=== PATIENT | male | born 1950 | race Caucasian/White ===

== ENCOUNTER → 2021-07-05 | Emergency (ER) | payer MEDICARE, BC | END | disposition home or self-care (01) | LOC: ER 15:54 | DX: S80.11XA Contusion of right lower leg, initial encounter (principal); M79.661 Pain in right lower leg; E78.00 Pure hypercholesterolemia, unspecified; I10 Essential (primary) hypertension; Z98.890 Other specified postprocedural states; Z88.8 Allergy status to other drugs, medicaments and biological substances; X58.XXXA Exposure to other specified factors, initial encounter; Y93.89 Activity, other specified; Y92.89 Other specified places as the place of occurrence of the external cause; Y99.8 Other external cause status | CPT/HCPCS: 93971; 99284 ==

== ENCOUNTER 2024-06-30 06:40 | Day surgery (SDC) | payer MEDICARE, BC ==
[2024-06-26 12:09] LABS: BASOPHILS % (AUTO) 0.7 % (0-1); EOSINOPHILS # (AUTO) 0.3 X10'3 (0-0.9); EOSINOPHILS % (AUTO) 6.2 % (0-6); LYMPHOCYTES # (AUTO) 1.6 X10'3 (1.1-4.8); LYMPHOCYTES % (AUTO) 30.6 % (21-51); MEAN CORPUSCULAR HEMOGLOBIN 31.1 PG (27.0-31.0); MEAN CORPUSCULAR HGB CONC 34.3 g/dL (33.0-36.5); MEAN CORPUSCULAR VOLUME 90.7 FL (78-98); MEAN PLATELET VOLUME 7.7 FL (7.4-10.4); MONOCYTES # (AUTO) 0.5 X10'3 (0-0.9); MONOCYTES % (AUTO) 8.6 % (2-12); NEUTROPHILS # (AUTO) 2.8 X10'3 (1.8-7.7); NEUTROPHILS % (AUTO) 53.9 % (42-75); PRE OP HEMATOCRIT 42.8 % (42.0-52.0); PRE OP HEMOGLOBIN 14.7 g/dL (14.0-17.9); PRE OP PLATELET COUNT 215 X10'3 (140-440); PRE OP WHITE BLOOD COUNT 5.3 10'3 (4.8-10.8); RED BLOOD COUNT 4.72 X10'6 (4.70-6.10); RED CELL DISTRIBUTION WIDTH 14.1 % (11.5-14.5)
[2024-06-26 12:22] LABS: ALBUMIN 3.9 G/DL (3.4-5.0); ALBUMIN/GLOBULIN RATIO 1.2 (1.1-1.5); ALKALINE PHOSPHATASE 48 IU/L (46-116); BLOOD UREA NITROGEN 21 MG/DL (7-18); BUN/CREATININE RATIO 15.4 (10.0-20.0); CALCIUM 9.8 MG/DL (8.5-10.1); CHLORIDE 104 MMOL/L (99-107); CREATININE 1.36 MG/DL (0.60-1.10); PRE OP ALT 31 U/L (30-65); PRE OP ANION GAP 7 (8-16); PRE OP AST 55 U/L (10-37); PRE OP BILIRUB, TOTAL 0.8 MG/DL (0.0-1.0); PRE OP GLUCOSE 89 MG/DL (70-104); PRE OP POTASSIUM 3.8 MMOL/L (3.4-5.1); PRE OP SODIUM 139 MMOL/L (135-145); TOTAL CARBON DIOXIDE 28.1 MMOL/L (24-32); TOTAL PROTEIN 7.2 G/DL (6.4-8.2); eGFR 51 ML/MIN
[~2024-06-30] VITALS: Ht 193 cm; Wt 95.3 kg
[2024-06-30] VITALS (17 sets, daily range): BP systolic 136–167; BP diastolic 69–93; PULSE 46–59; RESP 12–18; TEMP 98.1; O2SAT 93–99
[2024-06-30] MEDS: famotidine 20mg tablet PO ONE (05:30)
[2024-06-30] MEDS: cefazolin 2gm/D5W 100mL 100 ML IV ONE (05:45)
[~2024-06-30 06:40] MED LIST: ALIR150P6 SUBCUT; FENO145T26 PO; HYDR25TA5 PO; LORA-512 PO; MAGN100T6 PO; ringers solution, lacted 1,000 ML IV SCH
[2024-06-30] MEDS ORDERED: sevoflurane 250ml liquid IH ONE (07:52)
[2024-06-30] MEDS ORDERED: fentaNYL/PF 50MCG/1 ML 2ML syringe ONE (08:00)
[2024-06-30] MEDS ORDERED: midazolam 1 mg/ML 2ml injection ONE (08:01)
[2024-06-30] MEDS: LIDOcaine 1% 30ml preserv. free vial ONE (08:19)
[2024-06-30] MEDS: BUPIVAcaine 2.5mg/ml inj 50ml vial (contains preservative) ONE (08:19)
[2024-06-30] MEDS ORDERED: ondansetron/PF 4mg/2ml inj ONE (08:55)
[2024-06-30] MEDS ORDERED: dexamethasone sod phosphate 4mg/ml inj. ONE (08:56)
[2024-06-30] MEDS ORDERED: propofol inj 20 ML IV ONE (08:56)
[2024-06-30] MEDS ORDERED: rocuronium 10mg/ml inj IV ONE (08:56)
[2024-06-30] MEDS ORDERED: acetaminophen 1,000mg/100ml IV 100 ML IV ONE (08:57)
[2024-06-30] MEDS ORDERED: sugammadex 200mg/2ml injection IV ONE (09:09)
[2024-06-30] MEDS ORDERED: morphine 2 MG/ML inj. syringe IV PRN (09:50)
[2024-06-30] MEDS ORDERED: morphine 4 MG/ML inj SYRINge IV PRN (09:50)
[2024-06-30] MEDS ORDERED: ondansetron/PF 4mg/2ml inj IV PRN (09:50)
[2024-06-30] MEDS ORDERED: proCHLORperazine 10 MG/2 ml inj IV PRN (09:50)
[2024-06-30] MEDS ORDERED: ringers solution, lacted 1,000 ML IV SCH (09:50)
[2024-06-30] MEDS: acetaminophen w/codeine (30MG) #3 tablet PO PRN (12:40)
== END 2024-06-30 13:34 | disposition home or self-care (01) ==
LOC: PAS 06:40
PROVIDERS: ATTEND Surgery
DX: K40.20 Bilateral inguinal hernia, without obstruction or gangrene, not specified as recurrent (principal); K42.9 Umbilical hernia without obstruction or gangrene; K45.8 Other specified abdominal hernia without obstruction or gangrene; Z79.899 Other long term (current) drug therapy; Z98.890 Other specified postprocedural states; I10 Essential (primary) hypertension; Z89.421 Acquired absence of other right toe(s); Z88.8 Allergy status to other drugs, medicaments and biological substances
CPT/HCPCS: 36415; 49591; 49650; 80053; 82948; 85025; 93005; A4215; A4618; C1781; J0131; J0690; J1100; J2001; J2250; J2405; J2704; J3010; J3490; J7030; J7120; Z7506; Z7508